=== PATIENT | female | born 1950 | race Caucasian/White ===

== ENCOUNTER 2024-07-04 09:41 | Day surgery (SDC) | payer MEDICARE, MEDICAID ==
[~2024-07-04 09:41] MED LIST: Lactated Ringers 1,000 ML IV PRN; Sodium Chloride 0.9% 10 ML Syringe FLUSH PRN
[2024-07-04] MEDS ORDERED: Midazolam 1 MG/ML 2 ML SDV IV ONE (09:42)
[2024-07-04] MEDS ORDERED: fentaNYL 100 MCG/2 ML SDV IV ONE (09:42)
[2024-07-04] MEDS: acetaZOLAMIDE 500 MG Cap.ER PO ONE (11:47)
== END 2024-07-04 12:03 | disposition home or self-care (01) ==
LOC: FB.SDS 09:41
PROVIDERS: ATTEND Ophthalmology
DX: H26.9 Unspecified cataract (principal); K21.9 Gastro-esophageal reflux disease without esophagitis; Z87.891 Personal history of nicotine dependence
CPT/HCPCS: 66984; A9270; J2250; J3010; V2632; 00142; 99100

== ENCOUNTER 2024-07-18 08:57 | Day surgery (SDC) | payer MEDICARE, MEDICAID ==
[2024-07-18] MEDS ORDERED: Midazolam 1 MG/ML 2 ML SDV IV ONE (08:58)
[2024-07-18] MEDS ORDERED: fentaNYL 100 MCG/2 ML SDV IV ONE (08:58)
[2024-07-18] MEDS ORDERED: Sodium Chloride 0.9% 10 ML Syringe FLUSH PRN (09:00)
[2024-07-18] MEDS: Lactated Ringers 1,000 ML IV PRN (09:48)
[2024-07-18] MEDS: acetaZOLAMIDE 500 MG Cap.ER PO ONE (10:58)
== END 2024-07-18 11:02 | disposition home or self-care (01) ==
LOC: FB.SDS 08:57
PROVIDERS: ATTEND Ophthalmology
DX: H26.9 Unspecified cataract (principal); K21.9 Gastro-esophageal reflux disease without esophagitis; F41.9 Anxiety disorder, unspecified; Z79.899 Other long term (current) drug therapy
CPT/HCPCS: 66984; A9270; J2250; J3010; J7120; V2632; 00142; 99100